=== PATIENT | female | born 1945 | race Caucasian/White ===

== ENCOUNTER 2016-10-17 10:36 | Inpatient (IN) | payer OTHER ==
[~2016-10-17] VITALS: Ht 165.1 cm; Wt 77.7 kg
[~2016-10-17 10:36] MED LIST: ADVAIR 250/501 DISK IH; ALBUTEROL17 GM IH; ASCORBIC ACID500 M3 PO; BENADRYL25 MG PO; BENZTROPINE MESY1 MG PO; CENTRUM SILVER1 EAC3 PO; DOCUSATE SODIU100 MG PO; FLEXERIL10 MG PO; FOLIC ACID1 MG PO; GABAPENTIN600 MG PO; HALDOL2 MG PO; HYDROCODON-ACE1 EAC7 PO; HYDROCODON-ACE1 EAC9 PO; NAPROSYN500 MG PO; NORVASC10 MG PO; PAXIL20 MG PO; PRILOSEC20 MG PO; PRINIVIL40 MG PO; SENNA PLUS TAB1 EACH PO; ULTRAM50 MG PO; VENTOLIN HFA18 GM IH; ZOCOR40 MG PO; ZYPREXA15 MG PO; ZYPREXA20 MG PO
[2016-10-17 11:28] LABS: HEMATOCRIT 36.7 % (36.0-46.0); MCH 29.3 PG (29.0-34.0); MCHC 34.9 G/DL (30.0-36.0); PLATELET COUNT 257 K/uL (156-360); RBC DIS.WIDTH-CV 13.3 % (11.8-14.6); RED BLOOD COUNT 4.37 M/uL (3.80-5.20); WHITE BLOOD COUNT 8.1 K/uL (4.1-10.2)
[2016-10-17 11:36] LABS: CHLORIDE 97 mEq/L (99-109); POTASSIUM 4.4 mEq/L (3.7-5.4); SODIUM 129 mEq/L (136-147)
[2016-10-17 11:38] LABS: GLUCOSE 104 mg/dL (70-99)
[2016-10-17 11:39] LABS: ANION GAP 7 MEQ/L (2-14)
[2016-10-17 11:42] LABS: GFR ESTIMATE (CALCULATED) > 59 mL/min/; UREA NITROGEN (BUN) 7 mg/dL (9-23)
[2016-10-17 12:36] LABS: TROP-I INTERPRETATION NEGATIVE; TROPONIN-I < 0.01 ng/mL (0.0-0.30)
[2016-10-17 12:40] LABS: ADD MIUA? NO; BILIRUBIN NEGATIVE; BLOOD NEGATIVE; COLOR COLORLESS ((YELLOW)); GLUCOSE (STRIP) NEGATIVE; KETONES NEGATIVE; LEUKOCYTES NEGATIVE; NITRITE NEGATIVE; PROTEIN (STRIP) NEGATIVE; SPECIFIC GRAVITY 1.002 (1.000-1.030); UCUL ADDED? NO; UROBILINOGEN 0.2 MG/DL (0.2-1.0)
[2016-10-17] MEDS ORDERED: LOSARTAN POTASS50 MG PO (14:32)
[2016-10-17] MEDS ORDERED: CELECOXIB100 MG PO (14:32)
[2016-10-17] MEDS ORDERED: NORVASC10 MG PO (14:32)
[2016-10-17] MEDS ORDERED: PRAVASTATIN SOD40 MG PO (14:33)
[2016-10-17 15:45] VITALS: BP 146/66
[2016-10-17 16:09] VITALS: BP 146/66
[2016-10-17 20:00] VITALS: BP 100/51
[2016-10-18] VITALS: BP 117/59
[2016-10-18 04:00] VITALS: BP 151/68
[2016-10-18 07:42] LABS: ANION GAP 7 MEQ/L (2-14); CHLORIDE 104 MEQ/L (99-109); GFR ESTIMATE (CALCULATED) > 59 mL/min/; GLUCOSE 98 mg/dL (70-99); HDL CHOLESTEROL 52 MG/DL (Desirable>=50); LDL CHOLESTEROL 68 mg/dL (Desirable<100); NON-HDL CHOLESTEROL 83 mg/dL (Desirable<160); POTASSIUM 4.7 MEQ/L (3.7-5.4); SAMPLE HEMOLYSIS CHECK 0; SAMPLE ICTERIC CHECK 0; SAMPLE LIPEMIA CHECK 0; TOTAL CHOLESTEROL 135 mg/dL (Desirable<200); TRIGLYCERIDES 77 MG/DL (Normal: <150); UREA NITROGEN (BUN) 9 mg/dL (9-23)
[2016-10-18 07:46] LABS: SODIUM 137 MEQ/L (136-147)
[2016-10-18 08:13] VITALS: BP 139/66
[2016-10-18 08:53] LABS: Estimated Average Glucose 123 mg/dL (70-123); HEMOGLOBIN A1c (GLYCOHEMOGLOB) 5.9 % HGB (Below 5.7)
[2016-10-18 11:24] VITALS: BP 124/56
[2016-10-18 15:15] VITALS: BP 144/58
== END 2016-10-18 16:40 | disposition home health service (06) | DRG 56 ==
LOC: EME 10:36 → EXP 10:36 → 5SOUTH 13:16 → EDOF 13:16 → 5SOUTH 15:46
PROVIDERS: Hospitalist
DX: G30.9 Alzheimer's disease, unspecified (principal); G93.49 Other encephalopathy; J44.9 Chronic obstructive pulmonary disease, unspecified; F02.80 Dementia in other diseases classified elsewhere, unspecified severity, without behavioral disturbance, psychotic disturbance, mood disturbance, and anxiety; E87.1 Hypo-osmolality and hyponatremia; I10 Essential (primary) hypertension; F25.9 Schizoaffective disorder, unspecified; F41.9 Anxiety disorder, unspecified; F32.9 Major depressive disorder, single episode, unspecified; Z87.891 Personal history of nicotine dependence; E86.0 Dehydration; T50.905A Adverse effect of unspecified drugs, medicaments and biological substances, initial encounter
CPT/HCPCS: 70450; 70551; 71020; 80048; 80061; 81003; 83036; 84484; 85027; 93005; 94640; 99281; 99285; J7030